=== PATIENT | male | born 1995 | race African-American/Black ===

== ENCOUNTER 2021-01-24 23:31 | Inpatient (IN) ==
[2021-01-24] MEDS ORDERED: SODIUM CHLORIDE 0.9% 1,000 ML IV STA (23:34)
[2021-01-25 00:09] LABS: Basophils # 0.1 10*3/uL (0.0-0.2); Basophils % 0.4 % (0.0-0.8); Eosinophils # 0.1 10*3/uL (0.0-0.87); Eosinophils % 1.2 % (0.00-10.9); Hemoglobin 11.1 GM/DL (14.0-18.0); Immature Granulocytes % 0.4 %; Immature Granulocytes Absolute 0.04 #; Lymphocytes % 53.6 % (21.2-54.2); Mean Corpuscular HGB Conc 31.7 GM/DL (32-36); Mean Corpuscular Volume 96.2 FL (87-102); Monocytes % 5.9 % (1.7-12.7); Neutrophils % 38.5 % (38.7-73.9); Platelet Count 170 T/CUMM (130-400); Red Blood Count 3.64 MC/CUMM (3.8-5.5); Red Cell Distribution Width 11.4 % (9.3-17.3); White Blood Count 11.3 T/CUMM (4-12)
[2021-01-25] MEDS ORDERED: SUCCINYLCHOLINE 200 MG/10 ML VIAL ONE (00:14)
[2021-01-25] MEDS ORDERED: fentaNYL 100 MCG/2 ML VIAL ONE ×2 (00:14)
[2021-01-25] MEDS ORDERED: fentaNYL 100 MCG/2 ML VIAL IV STA (00:14)
[2021-01-25] MEDS ORDERED: propofoL 200 MG/20 ML VIAL IV ONE ×2 (00:14→01:32)
[2021-01-25] MEDS ORDERED: LIDOCAINE 2% 5 ML VIAL ONE (00:14)
[2021-01-25] MEDS ORDERED: MIDAZOLAM 2 MG/2 ML VIAL ONE (00:14)
[2021-01-25 00:17] LABS: Alanine Aminotransferase 108 U/L (16-61); Albumin 3.7 G/DL (3.4-5.0); Alkaline Phosphatase 73 U/L (45-117); Aspartate Amino Transferase 98 U/L (0-37); Blood Urea Nitrogen 14 MG/DL (7-18); Calcium 8.3 MG/DL (8.5-10.1); Carbon Dioxide 20 MMOL/L (21-32); Estimated Glom Filtration Rate 83 ML/MIN; Glucose 152 MG/DL (74-106); Osmolality,Calculated 286.1 MOS/KG (273-304); PT Patient Result 10.7 SECS (10.5-12.0); Partial Thromboplastin Time 23.1 SECS (23.8-32.1); Potassium 2.7 MMOL/L (3.5-5.1); Sodium 142 MMOL/L (136-145); Total Protein 7.1 G/DL (6.4-8.2)
[2021-01-25 00:37] LABS: Eosinophils 3 % (0-10); Lymphocytes 54 % (20-55); Platelet Estimate Normal; Segmented Neutrophils 40 % (50-85); Total Cells Counted 100
[2021-01-25 00:38] LABS: Hypochromasia Slight
[2021-01-25] MEDS ORDERED: ALBUMIN 5% 25.0 GM/500 ML VIAL IV ONE (00:50)
[2021-01-25] MEDS ORDERED: HEPARIN/NACL 0.9% 2 UNITS/ML 1,000 UNIT/500 ML BAG IV ONE (00:51)
[2021-01-25] MEDS ORDERED: HEPARIN 5,000 UNIT/1 ML VIAL ONE (00:58)
[2021-01-25] MEDS ORDERED: PHENYLEPHRINE 10 MG/1 ML VIAL IV ONE ×3 (01:14→03:05)
[2021-01-25] MEDS ORDERED: SODIUM CHLORIDE 0.9% 100 ML IV ONE (01:17)
[2021-01-25] MEDS ORDERED: PHENYLEPHRINE 1 MG/10 ML SYRINGE IV ONE (01:18)
[2021-01-25 01:27] LABS: ABG HCO3 18.7 MMOL/L (20-26); ABG Oxygen Saturation 99.8 % (95-100); ABG PCO2 37.9 MM HG (35-48); ABG PH 7.304 (7.35-7.45); ABG TCO2 17.5 MMOL/L (23-27)
[2021-01-25] MEDS ORDERED: ROCURONIUM 50 MG/5 ML VIAL IV ONE (01:32)
[2021-01-25] MEDS ORDERED: ePHEDrine 50 MG/ML VIAL ONE (01:40)
[2021-01-25] MEDS ORDERED: LACTATED RINGERS 1,000 ML IV ONE ×2 (01:41→02:24)
[2021-01-25] MEDS ORDERED: SODIUM CHLORIDE 0.9% 1,000 ML IV ONE (01:41)
[2021-01-25] MEDS ORDERED: SODIUM CHLORIDE 0.9% 250 ML IV ONE ×2 (01:50→03:07)
[2021-01-25 02:10] LABS: Hematocrit 27.4 VOL% (42.0-52.0); Hemoglobin 8.8 GM/DL (14.0-18.0)
[2021-01-25] MEDS ORDERED: ONDANSETRON 4 MG/2 ML VIAL ONE (02:56)
[2021-01-25] MEDS ORDERED: GLYCOPYRROLATE 0.4 MG/2 ML VIAL ONE (02:57)
[2021-01-25] MEDS ORDERED: NEOSTIGMINE 10 MG/10 ML VIAL ONE (02:58)
[2021-01-25] MEDS ORDERED: PHENYLEPHRINE DRIP 0 MG/0 ML PREMIX IV ONE (03:51)
[2021-01-25] MEDS ORDERED: SEVOFLURANE 1 UNIT/15 MINUTE INH ONE (03:54)
[2021-01-25] MEDS ORDERED: MORPHINE 2 MG/1 ML SYRINGE IV PRN (03:56)
[2021-01-25] MEDS: DEXTROSE 5% LACTATED RINGERS 1,000 ML IV SCH ×3 (04:30→21:15)
[2021-01-25 04:58] LABS: Basophils % 0.2 % (0.0-0.8); Eosinophils % 0.1 % (0.00-10.9); Hematocrit 25.1 VOL% (42.0-52.0); Hemoglobin 8.2 GM/DL (14.0-18.0); Immature Granulocytes % 0.6 %; Immature Granulocytes Absolute 0.07 #; Lymphocytes # 1.8 10*3/uL (1.4-4.0); Mean Corpuscular HGB Conc 32.7 GM/DL (32-36); Mean Platelet Volume 10.4 FL (9.6-12.0); Monocytes % 8.3 % (1.7-12.7); Neutrophils % 74.8 % (38.7-73.9); Platelet Count 148 T/CUMM (130-400); Red Cell Distribution Width 12.7 % (9.3-17.3)
[2021-01-25 05:03] LABS: ABG HCO3 18.7 MMOL/L (20-26); ABG Oxygen Saturation 98.5 % (95-100); ABG PCO2 43.9 MM HG (35-48); ABG PH 7.247 (7.35-7.45); ABG PO2 254.1 MM HG (80-95)
[2021-01-25 05:09] LABS: INR 1.1; PT Patient Result 12.4 SECS (10.5-12.0)
[2021-01-25 05:23] LABS: Albumin 3.1 G/DL (3.4-5.0); Bilirubin,Total 0.6 MG/DL (0.20-1.00); Calcium 7.1 MG/DL (8.5-10.1); Osmolality,Calculated 291.6 MOS/KG (273-304); Potassium 3.1 MMOL/L (3.5-5.1); Total Protein 5.3 G/DL (6.4-8.2)
[2021-01-25 05:56] LABS: Barbiturates Screen,Urine Negative (Negative); Benzodiazepines Screen,Urine Negative (Negative); Cannabinoid Screen,Urine Positive (Negative); Opiate Screen,Urine Negative (Negative); Phencyclidine Screen,Urine Negative (Negative)
[2021-01-25] MEDS: PANTOPRAZOLE 40 MG TABLET PO SCH (08:49)
[2021-01-25] MEDS: HYDROmorphone 2 MG/1 ML VIAL IV PRN ×4 (09:30→23:13)
[2021-01-25] MEDS: POTASSIUM CHLORIDE RIDER 10 MEQ/100 ML PREMIX IV PRN ×3 (09:40→13:10)
[2021-01-25 11:28] LABS: Basophils % 0.2 % (0.0-0.8); Hematocrit 19.9 VOL% (42.0-52.0); Hemoglobin 6.7 GM/DL (14.0-18.0); Immature Granulocytes % 1.2 %; Immature Granulocytes Absolute 0.12 #; Lymphocytes # 2.1 10*3/uL (1.4-4.0); Lymphocytes % 20.8 % (21.2-54.2); Mean Corpuscular HGB Conc 33.7 GM/DL (32-36); Mean Corpuscular Volume 91.3 FL (87-102); Mean Platelet Volume 11.3 FL (9.6-12.0); Monocytes % 6.7 % (1.7-12.7); Neutrophils % 71.1 % (38.7-73.9); Platelet Count 126 T/CUMM (130-400); Red Blood Count 2.18 MC/CUMM (3.8-5.5); Red Cell Distribution Width 12.7 % (9.3-17.3)
[2021-01-25 12:20] LABS: Basophils % 0.2 % (0.0-0.8); Eosinophils % 0.1 % (0.00-10.9); Hematocrit 18.9 VOL% (42.0-52.0); Immature Granulocytes % 0.4 %; Immature Granulocytes Absolute 0.03 #; Lymphocytes % 23.5 % (21.2-54.2); Mean Corpuscular HGB Conc 33.3 GM/DL (32-36); Mean Corpuscular Volume 90.9 FL (87-102); Mean Platelet Volume 10.4 FL (9.6-12.0); Monocytes % 8.7 % (1.7-12.7); Neutrophils % 67.1 % (38.7-73.9); Platelet Count 121 T/CUMM (130-400); Red Blood Count 2.08 MC/CUMM (3.8-5.5); Red Cell Distribution Width 12.7 % (9.3-17.3); White Blood Count 8.4 T/CUMM (4-12)
[2021-01-25 12:25] LABS: Hemoglobin 6.3 GM/DL (14.0-18.0)
[2021-01-25] MEDS: ceFAZolin 2,000 MG/50 ML DUPLEX IV SCH ×2 (13:10→21:15)
[2021-01-25] MEDS ORDERED: SODIUM CHLORIDE 0.9% 1,000 ML IV PRN (13:25)
[2021-01-25] MEDS: ONDANSETRON 4 MG/2 ML VIAL IV PRN ×3 (14:22→23:18)
[2021-01-25] MEDS ORDERED: hydrALAZINE 20 MG/1 ML VIAL IV PRN (18:37)
[2021-01-25] MEDS ORDERED: ceFAZolin 2,000 MG/50 ML DUPLEX IV ONE (20:58)
[2021-01-25] MEDS ORDERED: ceFAZolin 2,000 MG/50 ML DUPLEX IV SCH (21:00)
[2021-01-25 21:57] LABS: Hematocrit 25.8 VOL% (42.0-52.0)
[2021-01-25 21:59] LABS: Hemoglobin 8.7 GM/DL (14.0-18.0)
[2021-01-26] MEDS: ONDANSETRON 4 MG/2 ML VIAL IV PRN ×2 (03:36→15:16)
[2021-01-26] MEDS: HYDROmorphone 2 MG/1 ML VIAL IV PRN ×3 (03:36→23:44)
[2021-01-26 04:04] LABS: Basophils % 0.3 % (0.0-0.8); Eosinophils % 0.6 % (0.00-10.9); Hematocrit 25.6 VOL% (42.0-52.0); Hemoglobin 8.7 GM/DL (14.0-18.0); Immature Granulocytes % 0.4 %; Immature Granulocytes Absolute 0.03 #; Lymphocytes # 1.3 10*3/uL (1.4-4.0); Lymphocytes % 18.5 % (21.2-54.2); Mean Corpuscular Volume 83.7 FL (87-102); Mean Platelet Volume 11.2 FL (9.6-12.0); Monocytes % 10.9 % (1.7-12.7); Neutrophils % 69.3 % (38.7-73.9); Red Cell Distribution Width 15.9 % (9.3-17.3); White Blood Count 7.3 T/CUMM (4-12)
[2021-01-26 04:11] LABS: Platelet Count 99 T/CUMM (130-400)
[2021-01-26 04:12] LABS: Red Blood Count 3.06 MC/CUMM (3.8-5.5)
[2021-01-26 04:21] LABS: Bilirubin,Total 1.2 MG/DL (0.20-1.00); Calcium 8.3 MG/DL (8.5-10.1); Potassium 3.4 MMOL/L (3.5-5.1); Total Protein 5.4 G/DL (6.4-8.2)
[2021-01-26 04:22] LABS: Hypochromasia 1+; Microcytosis 1+; Platelet Estimate Decreased
[2021-01-26 04:43] LABS: Osmolality,Calculated 276.4 MOS/KG (273-304)
[2021-01-26] MEDS: DEXTROSE 5% LACTATED RINGERS 1,000 ML IV SCH (05:17)
[2021-01-26] MEDS: POTASSIUM CHLORIDE RIDER 10 MEQ/100 ML PREMIX IV PRN ×3 (05:55→13:40)
[2021-01-26] MEDS: PANTOPRAZOLE 40 MG TABLET PO SCH (08:09)
[2021-01-26] MEDS ORDERED: INFLUENZA VIRUS VACCINE 0.5 ML SYRINGE IM ONE (18:32)
[2021-01-27] MEDS: PANTOPRAZOLE 40 MG TABLET PO SCH (08:38)
[2021-01-27 12:26] VITALS: BP 128/88
== END 2021-01-27 15:30 | disposition home or self-care (01) | DRG 907 ==
LOC: EDUNIT# → EDBD → N.EDINP 23:31 → N.ED 23:31 → N.ICU 01-25 00:45 → N.3E 01-25 03:24 → N.ICU 01-25 04:06 → N.3E 01-26 08:27
PROVIDERS: ADMIT Surgery; ATTEND Surgery